=== PATIENT | male | born 1960 | race Caucasian/White ===

== ENCOUNTER 2023-08-29 10:28 | Outpatient (OUT) | payer OTHER, SELFPAY ==
--- NOTE | 2023-08-29 10:34 | ECG_ITS ---
[facility] Test Date: 2023-08-29 Pat Name: ALISON RICK Department: Room: - Gender: Male Pile Operator: : 1960 Requested By: Chato Howell Order Number: [id number] Reading MD: CARISSA JAIMES Measurements Intervals [place] Rate: 70 P: 16 CO: 179 QRS: 40 QRSD: 102 T: 28 QT: 378 QTc: 409 Interpretive Statements SINUS RHYTHM WITH OCCASIONAL VENTRICULAR PREMATURE COMPLEXES INTERPRETATION BASED ON A DEFAULT AGE OF 40 YEARS No previous ECG available for comparison Electronically Signed On 08-29-2023 22:52:39 EDT by CARISSA JAIMES
--- NOTE | 2023-08-29 11:27 | PM.PRESUREVA ---
History of Present Illness History of Present Illness Chief complaint: left carpal tunnel syndrome Narrative: Patient presents for preadmission testing. Please see HPI from Dr. Howell dated 08/16/2023. Review of Systems ROS Narrative REVIEW OF SYSTEMS: Negative except as stated in HPI, ten or more systems reviewed. Constitutional: No fever , chills, weakness ENT: No sore throat or epistaxis Cardiovascular: No edema, chest pain, palpitations, or activity intolerance Respiratory: No shortness of breath, cough, or wheezing Gastrointestinal: No abdominal pain, constipation, diarrhea, or vomiting Genitourinary: No dysuria or hematuria Neurological: No weakness or headache Psychiatric: No mood changes PFSH PFSH Medical History (Updated 08/29/23 @ 11:25 by Darlene Babcock NP) Arthritis ?M19.90 - Unspecified osteoarthritis, unspecified site (ICD-10) Lung nodule ?R91.1 - Solitary pulmonary nodule (ICD-10) Pneumonia ?J18.9 - Pneumonia, unspecified organism (ICD-10) Erectile dysfunction ?N52.9 - Male erectile dysfunction, unspecified (ICD-10) BPH (benign prostatic hyperplasia) ?N40.0 - Benign prostatic hyperplasia without lower urinary tract symptoms (ICD-10) Hypertension ?I10 - Essential (primary) hypertension (ICD-10) Diabetes ?E11.9 - Type 2 diabetes mellitus without complications (ICD-10) Carpal tunnel syndrome ?G56.00 - Carpal tunnel syndrome, unspecified upper limb (ICD-10) Surgical History (Updated 08/29/23 @ 11:03 by Darlene Babcock NP) History of carpal tunnel release ?Z98.890 - Other specified postprocedural states (ICD-10) History of nasal septoplasty ?Z98.890 - Other specified postprocedural states (ICD-10) History of arthroplasty of knee ?Z96.659 - Presence of unspecified artificial knee joint (ICD-10) History of hernia repair ?Z98.890 - Other specified postprocedural states (ICD-10) ?Z87.19 - Personal history of other diseases of the digestive system (ICD-10) History of arthroscopy of shoulder ?Z98.890 - Other specified postprocedural states (ICD-10) History of nasal surgery ?Z98.890 - Other specified postprocedural states (ICD-10) Family History (Updated 08/29/23 @ 11:00 by Darlene Babcock NP) Other Family history of hypertension Family history of pancreatic cancer Social History (Updated 08/29/23 @ 10:58 by Darlene Babcock NP) Within the past year, how often did you have a drink containing alcohol: 2-3 times a week Smoking status: Never smoker Non-prescribed substance use: denies use Previous occupational history: Retired/[employer] Highest level of school completed/degree received: high school graduate Meds Home Medications and Allergies Home Medications ?Medication ?Instructions ?Recorded ?Confirmed ?Type alogliptin 12.5 mg tablet 12.5 mg PO DAILY 08/29/23 08/29/23 History diclofenac sodium 75 mg 75 mg PO BID 08/29/23 08/29/23 History tablet,delayed release hydrochlorothiazide 25 mg tablet 25 mg PO DAILY 08/29/23 08/29/23 History lisinopril 10 mg tablet 10 mg PO DAILY 08/29/23 08/29/23 History metformin 500 mg tablet 500 mg PO BID 08/29/23 08/29/23 History multivitamin (Daily Multi-Vitamin 1 tab PO DAILY 08/29/23 08/29/23 History tablet) tadalafil 20 mg tablet 20 mg PO DAILY 08/29/23 08/29/23 History tadalafil 5 mg tablet 5 mg PO DAILY PRN sexual activity 08/29/23 08/29/23 History zolpidem 10 mg tablet (Ambien) 10 mg PO DAILY 08/29/23 08/29/23 History Allergies Allergy/AdvReac Type Severity Reaction Status Date / Time tamsulosin [From Flomax] Allergy urinary Verified 08/29/23 10:55 retention Exam Narrative Exam Narrative: Constitutional: Awake, alert, comfortable, well-appearing, nontoxic, interactive, vital signs as charted Head: Normocephalic, atraumatic Neck: Supple, normal appearance, normal range of motion, no meningeal signs, no lymphadenopathy Respiratory: No respiratory distress, breath sounds clear Cardiovascular: Regular rate and rhythm, strong and regular heart tones Skin: No rashes or induration, no lesions, only visible skin inspected Psychiatric: Oriented ?3, normal affect Assessment and Plan Assessment and Plan (1) Carpal tunnel syndrome: Plan Left Endoscopic carpal tunnel release scheduled with Dr. Howell 09/11/2023.
[2023-08-29 11:49] LABS: BUN Creatinine Ratio 18.6; Calcium 9.2 mg/dL (8.5-10.1); Carbon Dioxide 26.1 mmol/L (21.0-32.0); Chloride 99 mmol/L (98-107); Estimated GFR (African America >60 (>=60); Estimated GFR (Non-African Ame >60 (>=60); Glucose 131 mg/dL (74-106); Potassium 4.1 mmol/L (3.5-5.1); Sodium 135 mmol/L (136-145)
[2023-08-29 12:20] LABS: Estimated Average Glucose 143 mg/dL; Glycohemoglobin A1C 6.6 % (4.5-6.2)
== END 2023-08-29 10:29 | disposition home or self-care (01) ==
PROVIDERS: Visit Provider Orthopaedic Surgery
DX: Z01.810 Encounter for preprocedural cardiovascular examination (principal); Z01.812 Encounter for preprocedural laboratory examination; Z01.818 Encounter for other preprocedural examination; G56.02 Carpal tunnel syndrome, left upper limb
CPT/HCPCS: 80048; 83036; 93005; G0463

== ENCOUNTER 2023-09-11 08:50 | Day surgery (SDC) | payer OTHER, SELFPAY ==
[2023-08-29 11:14] VITALS: BP 120/77; PULSE 70; RESP 20; TEMP 36.2; O2SAT 96; BMI 39.1
[2023-09-11 12:26] VITALS: BP 107/62; PULSE 92; TEMP 36.2; O2SAT 95; BMI 38.6
[2023-09-11] MEDS: LACTATED RINGER'S SOLUTION 1,000 ML 50 ML IV (12:36)
== END 2023-09-11 14:00 | disposition home or self-care (01) ==
LOC: SURGOUT 09-13 08:51
PROVIDERS: Visit Provider Orthopaedic Surgery
PROC: (CPT 29848; principal; 2023-09-11 13:00)
DX: G56.02 Carpal tunnel syndrome, left upper limb (principal); Z53.8 Procedure and treatment not carried out for other reasons; I10 Essential (primary) hypertension; E11.9 Type 2 diabetes mellitus without complications; M19.90 Unspecified osteoarthritis, unspecified site; Z87.01 Personal history of pneumonia (recurrent); R91.1 Solitary pulmonary nodule; N52.9 Male erectile dysfunction, unspecified; N40.0 Benign prostatic hyperplasia without lower urinary tract symptoms; Z79.84 Long term (current) use of oral hypoglycemic drugs
CPT/HCPCS: 29848; 36415; 82948

== ENCOUNTER 2023-09-19 14:39 | Outpatient (OUT) | payer OTHER, SELFPAY | END 2023-09-19 14:40 | disposition home or self-care (01) | LOC: PST 14:39 | PROVIDERS: Visit Provider Orthopaedic Surgery | DX: Z01.818 Encounter for other preprocedural examination (principal); G56.02 Carpal tunnel syndrome, left upper limb; I10 Essential (primary) hypertension; E11.9 Type 2 diabetes mellitus without complications ==

== ENCOUNTER 2023-09-25 11:36 | Day surgery (SDC) | payer OTHER, SELFPAY ==
[2023-09-25 11:50] VITALS: BP 125/88; PULSE 87; TEMP 36.1; O2SAT 94; BMI 38.4
[2023-09-25] MEDS: LACTATED RINGER'S SOLUTION 1,000 ML 50 ML IV (12:02)
[2023-09-25] MEDS: LIDOCAINE HCL 1%-EPINEPHRINE 1:100,000 10 ML MDV INJ (13:57)
[2023-09-25] MEDS: BUPIVACAINE HCL 0.5% PF 50 MG/10 ML VIAL INJ (13:57)
[2023-09-25] MEDS: CEFAZOLIN SODIUM 1,000 MG VIAL 2000 MG IV (14:12)
[2023-09-25 14:23] VITALS: BP 120/90; PULSE 89; TEMP 36.1; O2SAT 93
--- NOTE | 2023-09-25 14:25 | PM.ORPRC ---
Procedure Note Date of procedure: 09/25/23 Pre-op diagnosis: Left carpal tunnel syndrome Post-op diagnosis: same as pre-op Procedure: Preoperative Diagnosis: Left carpal tunnel syndrome Postoperative Diagnosis: Same Procedure: Left endoscopic carpal tunnel release Surgeon: Dante Anesthesia: Local with MAC Estimated blood loss:Minimal Tourniquet time: 3 Minutes at 225 mmHg Complications: None Indications for Surgery: The patient has had signs and symptoms of carpal tunnel syndrome that have failed conservative treatment. Options were discussed with the patient as well as risks and benefits and they have elected to proceed with the surgery. Operative procedure: Prior to surgery the patient received IV antibiotics. The operative extremity was marked preoperatively. After informed consent was obtained the patient was brought to the operating room where MAC anesthesia was administered. Preoperatively 5 mm 0.5% Marcaine plain with 5 mm 1% lidocaine with epinephrine were infiltrated in the operative sight. The arm was then prepped and draped in the usual sterile fashion after placement of a well padded tourniquet. The arm was elevated, exsanguinated, and the tourniquet was inflated. A 1 cm incision was then made in a preexisting distal wrist crease. Hemostasis was achieved with bipolar electrocautery. Blunt dissection was then carried down to the forearm fascia where a U-based flap was created. Proximally the fascia was incised for 2 cm under direct visualization. Attention was then turned to the endoscopic carpal tunnel release. The synovial elevator was used to clear the underside of the transverse carpal ligament of soft tissue. Sequential dilators were then placed. The endoscopic carpal tunnel released instrument was then placed. The transverse fibers were then identified and release from distal to proximal. The ligament was completely release. The tourniquet was deflated and hemostasis was achieved. The wound was irrigated and closed with a nylon suture. A sterile dressing was placed. The patient was brought to the recovery room. There were no preoperative or postoperative complications. Anesthesia: MAC and local Surgeon: Chato Howell Estimated blood loss (mL): 1 Pathology: none sent Condition: stable Disposition: PACU
[2023-09-25 14:38] VITALS: BP 164/84; PULSE 93; O2SAT 96
[2023-09-25 14:53] VITALS: BP 156/84; PULSE 86; O2SAT 96
== END 2023-09-25 14:53 | disposition home or self-care (01) ==
PROVIDERS: Visit Provider Orthopaedic Surgery
PROC: (CPT 1810; principal; 2023-09-25 13:00)
DX: G56.02 Carpal tunnel syndrome, left upper limb (principal); I10 Essential (primary) hypertension; E11.9 Type 2 diabetes mellitus without complications; Z87.01 Personal history of pneumonia (recurrent); M19.90 Unspecified osteoarthritis, unspecified site; R91.1 Solitary pulmonary nodule; Z79.84 Long term (current) use of oral hypoglycemic drugs
CPT/HCPCS: 29848; 82948; J1170; J2704